=== PATIENT | female | born 1965 | race Two or more races ===

== ENCOUNTER 2020-12-26 05:45 | Day surgery (SDC) | payer OTHER ==
[~2020-12-26 05:45] MED LIST: COZAAR100 MG PO; ESTAZOLAM2 MG PO; GABAPENTIN600 MG PO; LEVO-T75 MCG PO; TOPROL XL100 M1 PO
[2020-12-26] MEDS ORDERED: NEURONTIN300 MG PO (09:15)
[2020-12-26] MEDS ORDERED: PERCOCET 5-3251 EACH PO (09:15)
[2020-12-26] MEDS ORDERED: DERMOPLAST PAIN78 GM TOP (09:16)
[2020-12-26] MEDS ORDERED: KETO10TA2 PO (09:16)
== END 2020-12-26 14:20 | disposition home or self-care (01) ==
LOC: CIR.AMB 05:45 → ADM 01-19 10:15
PROVIDERS: ATTEND Surgery
DX: K60.1 Chronic anal fissure (principal); K64.8 Other hemorrhoids; K62.4 Stenosis of anus and rectum; Z20.822 Contact with and (suspected) exposure to COVID-19